=== PATIENT | female | born 1970 | race Caucasian/White ===

== ENCOUNTER 2018-07-17 23:44 | Emergency (ER) | payer OTHER ==
[~2018-07-17] VITALS: Ht 157.5 cm; Wt 76.7 kg
[2018-07-18] MEDS ORDERED: ACETAMINOPHEN 500 MG TABLET PO ONE
[2018-07-18] MEDS ORDERED: CEPH500C PO (00:04)
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
[2018-07-18 00:15] VITALS: BP 134/94
== END 2018-07-18 00:20 | disposition home or self-care (01) ==
LOC: ER 23:44
DX: S00.81XA Abrasion of other part of head, initial encounter (principal); F41.9 Anxiety disorder, unspecified; Z88.0 Allergy status to penicillin; Y08.89XA Assault by other specified means, initial encounter; Y93.89 Activity, other specified; Y92.89 Other specified places as the place of occurrence of the external cause; Y99.8 Other external cause status
CPT/HCPCS: 99284